=== PATIENT | male | born 1990 | race Two or more races ===

== ENCOUNTER 2016-08-21 19:14 | Emergency (ER) | payer MEDICAID, OTHER ==
[~2016-08-21] VITALS: Ht 175.3 cm; Wt 72.0 kg
[~2016-08-21 19:14] MED LIST: IOHEXOL-300 100 ML BOTTLE ONE; SODIUM CHLORIDE 0.9% 10ML VIAL ONE
[2016-08-21] MEDS ORDERED: SODIUM CHLORIDE 0.9% 1,000 ML IV ONE ×2 (20:20→22:48)
[2016-08-21] MEDS ORDERED: MORPHINE SULFATE 4 MG/ML CPJ (NOT FOR IM USE) IV STA (20:20)
[2016-08-21] MEDS ORDERED: ONDANSETRON HCL 4MG/2ML VIAL IV STA (20:20)
[2016-08-21 20:54] LABS: BASOPHILS % 0.3 % (0.0-2.0); EOSINOPHILS % 0.1 % (0.0-5.0); HEMATOCRIT. 42.7 % (42.0-52.0); HEMOGLOBIN. 14.5 g/dL (14.0-18.0); LYMPHOCYTES % 11.8 % (20.0-50.0); MEAN CORPUSCULAR VOLUME 88.7 fL (80.0-94.0); MEAN PLATELET VOLUME 7.7 fl (7.4-10.4); MONOCYTES % 8.1 % (2.0-8.0); NEUTROPHILS % 79.7 % (40.0-76.0); PLATELET 194 x1000/uL (130-400); RED BLOOD CELL COUNT 4.81 mill/uL (4.7-6.1); RED CELL DISTRIBUTION WIDTH 13.9 % (11.6-14.6)
[2016-08-21 20:58] LABS: PROTHROMBIN TIME 10.9 sec
[2016-08-21 21:09] LABS: CHLORIDE 103 mEq/L (98-107)
[2016-08-21 21:17] LABS: CARBON DIOXIDE 24 mEq/L (21-32)
[2016-08-21] MEDS ORDERED: MORPHINE SULFATE 4 MG/ML CPJ (NOT FOR IM USE) IV ONE (22:30)
[2016-08-22 00:07] VITALS: BP 140/74
== END 2016-08-22 00:28 | disposition short-term general hospital (02) ==
LOC: ER 21:02
DX: S22.42XA Multiple fractures of ribs, left side, initial encounter for closed fracture (principal); S27.1XXA Traumatic hemothorax, initial encounter; S36.039A Unspecified laceration of spleen, initial encounter; S80.212A Abrasion, left knee, initial encounter; M54.9 Dorsalgia, unspecified; V23.9XXA Unspecified motorcycle rider injured in collision with car, pick-up truck or van in traffic accident, initial encounter; Y93.89 Activity, other specified; Y99.8 Other external cause status; Y92.89 Other specified places as the place of occurrence of the external cause
CPT/HCPCS: 36415; 71010; 71260; 72170; 73560; 74177; 80053; 83605; 85025; 85610; 96361; 96374; 96375; 96376; 99291; A4216; J2270; J2405; J7030; Q9967; Z7610